=== PATIENT | female | born 1945 | race Caucasian/White ===

== ENCOUNTER 2019-03-21 10:10 | Inpatient (IN) | payer OTHER ==
[~2019-03-21] VITALS: Ht 160 cm; Wt 39.6 kg
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
[2019-03-21 10:11] VITALS: BP 172/68
[2019-03-21] MEDS ORDERED: PERCOCET 5-3251 EACH PO (10:33)
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
[2019-03-21 16:31] LABS: ABSOLUTE NEUTROPHILS 16.5 thou/uL (1.4-8.2); BASOPHILS 0.6 % (0.0-2.0); EOSINOPHILS 0.1 % (0.0-3.0); HEMATOCRIT 47.5 % (37.0-47.0); HEMOGLOBIN 15.7 gm/dL (12.0-15.0); MCH 31.7 pg (26.0-34.0); MCV 95.9 fL (80.0-100.0); MONOCYTES 6.5 % (1.0-8.0); PLATELET COUNT 195 thou/uL (150-400); POLYS 82.8 % (36.0-66.0); RBC 4.96 mil/uL (4.20-5.00); RDW 13.6 % (10.5-14.5)
[2019-03-21 16:40] LABS: APTT 32.9 Seconds (24.5-32.8); CALCIUM 9.8 mg/dL (8.5-10.1); CREATININE 1.1 mg/dL (0.6-1.0); INR 1.1; POTASSIUM 4.3 mmol/L (3.5-5.1); PROTIME 11.5 Seconds (9.3-11.4)
[2019-03-21 16:50] LABS: ALBUMIN 3.6 g/dL (3.4-5.0); DIRECT BILIRUBIN 0.2 mg/dL (<0.1-0.2); TOTAL PROTEIN 7.9 g/dL (6.4-8.2); TROPONIN-I 0.31 ng/mL (<0.06)
[2019-03-21 17:02] VITALS: BP 162/70
[2019-03-21 17:35] VITALS: BP 172/64
[2019-03-21 18:05] VITALS: BP 172/83
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
[2019-03-21 20:08] VITALS: BP 151/77
[2019-03-21 23:23] VITALS: BP 100/67
[2019-03-22 04:17] LABS: ALBUMIN 3.5 g/dL (3.4-5.0); CALCIUM 9.3 mg/dL (8.5-10.1); MAGNESIUM 1.9 mg/dL (1.8-2.4); PHOSPHORUS 4.2 mg/dL (2.5-4.9); POTASSIUM 4.3 mmol/L (3.5-5.1); TROPONIN-I 0.4 ng/mL (<0.06)
[2019-03-22 04:18] LABS: HEMATOCRIT 47.4 % (37.0-47.0); HEMOGLOBIN 15.4 gm/dL (12.0-15.0); MCH 31.7 pg (26.0-34.0); MCHC 32.6 g/dL (28.0-37.0); MCV 97.4 fL (80.0-100.0); RBC 4.87 mil/uL (4.20-5.00); RDW 13.2 % (10.5-14.5); WBC 20.4 thou/uL (4.0-11.0)
[2019-03-22 04:45] VITALS: BP 148/81
--- NOTE | 2019-03-22 06:24 | NUR ---
continues to have generalized pain. caLLS FOR ASSIST OUT OF BED. CONSULTED CARDIOLOGY AND ELEVATED TROPONINS REPORTED TO THE COMPUTING TUTOR. CAREPLAN STARTED
[2019-03-22 07:00] VITALS: BP 152/56
[2019-03-22] MEDS ORDERED: OXYCODONE HCL10 MG PO (08:54)
[2019-03-22] MEDS ORDERED: LOVASTATIN 20 M20 MG PO (08:54)
[2019-03-22] MEDS ORDERED: ALPRAZOLAM 0.0.25 MG PO (08:56)
[2019-03-22] MEDS ORDERED: DICLOFENAC SOD100 G1 TOP (09:00)
[2019-03-22] MEDS ORDERED: NEURONTIN 300M300 M2 PO (09:01)
[2019-03-22] MEDS ORDERED: BUPROPION XL150 MG PO (09:02)
[2019-03-22] MEDS ORDERED: PERCOCET 10-321 EAC1 PO (10:27)
[2019-03-22] MEDS ORDERED: NEURONTIN100 MG PO (10:33)
[2019-03-22] MEDS ORDERED: FLEXERIL PO (10:36)
[2019-03-22] MEDS ORDERED: SERTRALINE HCL100 MG PO (10:41)
[2019-03-22] MEDS ORDERED: COZAAR 25 MG TA25 M2 PO (10:42)
--- NOTE | 2019-03-22 14:36 | 2DMMODE ---
[facility] Alissa [place] [address] 2 D/M-MODE ECHOCARDIOGRAM Name: LYDIA ZAMORA MOE Room #: 364-P ADM IN M.R.#: [id number] Admission: 03/21/19 Attend Phys: Johnie Garvey, Discharge: Date of : 45 Report #: [id number] THIS REPORT FOR: //name// APPROVED REPORT Study performed: 03/22/2019 11:11:02 EXAM: Comprehensive 2D, Doppler, and color-flow Echocardiogram Patient Location: In-Patient Room #: 364 Status: routine BSA: 1.33 HR: 103 bpm BP: 106/50 mmHg Rhythm: Atrial Fibrillation Other Information Study Quality: Adequate Risk Factors: Cardiac Risk Factors: Hyperlipidemia, HTN, Smoking 2D Dimensions RVDd: 29.17 mm IVSd: 13.48 (7-11mm) LVOT Diam: 14.65 (18-24mm) LVDd: 27.28 mm PWd: 13.55 (7-11mm) Left Atrium: 27.39 (27-40mm) Aortic Root: 29.80 mm LV Single Plane 4CH: 73.50 % Volumes Left Atrial Volume (Systole) Single Plane 4CH: 18.81 mL Aortic Valve AoV Peak Lex.: 3.72 m/s AO Peak Gr.: 55.34 mmHg AO Mean Gr.: 25.96 mmHg AO V2 Mean: 2.31 m/s AO V2 VTI: 67.22 cm Mitral Valve E/A Ratio: 0.6 MV Decel. Time: 359.80 ms [facility] [address] [place] [address] 2 D/M-MODE ECHOCARDIOGRAM Name: LYDIA ZAMORA Room #: 364-P ADM IN M.Kenyatta.#: [id number] Admission: 03/21/19 Attend Phys: Johnie Garvey, Discharge: Date of : 45 Report #: [id number] MV E Max Lex.: 1.00 m/s MV A Lex.: 1.55 m/s MV PHT: 104.34 ms Tricuspid Valve TR Peak Lex.: 2.82 m/s TR Peak Gr.: 31.82 mmHg Left Ventricle The left ventricle is normal size. There is normal LV segmental wall motion. Moderate concentric left ventricular hypertrophy. Left ventricular systolic function is hyperdynamic. LVEF is >70%. Mild diastolic dysfunction is present (impaired relaxation pattern). Right Ventricle The right ventricle is normal size. The right ventricular systolic function is normal. Atria The left atrium size is normal. The right atrium size is normal. Aortic Valve Aortic valve is moderately calcified. There is a marked LVOT obstruction with gradient. No aortic regurgitation is present. Clear transaortic gradients are not obtained. Mitral Valve Moderately heavy mitral annular calcification. Systolic anterior motion of the mitral valve with possible LVOT gradient. Not clearly defined on study. Moderate to severe mitral regurgitation Tricuspid Valve Trace tricuspid regurgitation. Estimated PAP is 42 mmHg. Pulmonic Valve The pulmonary valve is normal in structure. Great Vessels IVC is normal in size and collapses >50% with inspiration. Pericardium There is no pericardial effusion. [facility] [address] [place] [address] 2 D/M-MODE ECHOCARDIOGRAM Name: LYDIA ZAMORA Room #: 364-P ADM IN M.R.#: [id number] Admission: 03/21/19 Attend Phys: Johnie Garvey, Discharge: Date of : 45 Report #: [id number] <Conclusion> Limited study Left ventricular systolic function is hyperdynamic. LVEF is >70%. Moderate concentric left ventricular hypertrophy. There is normal LV segmental wall motion. Mild diastolic dysfunction is present (impaired relaxation pattern). Aortic valve is moderately calcified. A LVOT gradient is suggested although poorly defined. No aortic regurgitation is present. Clear transaortic gradients are not obtained. Moderately heavy mitral annular calcification. Systolic anterior motion of the mitral valve with possible LVOT gradient. Not clearly defined on study. Moderate to severe mitral regurgitation Pulmonary artery systolic pressure could not be reliably ascertained There is no pericardial effusion. <ELECTRONICALLY SIGNED> By: Esteban Rivers MD, [facility] 03/22/19 1436 1436 1436 Esteban Rivers MD, FACC /INF
[2019-03-22 15:05] VITALS: BP 131/59
--- NOTE | 2019-03-22 15:20 | EKG ---
[address] [employer] [place] [address] ELECTROCARDIOGRAM REPORT Name: LYDIA ZAMORA Room #: 364-P ADM IN M.R.#: [id number] Admission: 03/21/19 Attend Phys: Johnie Garvey MD Discharge: Date of : 45 Report #: [id number] THIS REPORT FOR: //name// [facility] Test Date: 2019-03-21 Test Time: 22:18:28 Pat Name: LYDIA ZAMORA Department: Room: 364 P Gender: F [employer]: Garima GARCIA : 1945 Requested By: Sloan Ann Order Number: [id number] MD: Esteban Rivers Measurements Intervals [place] Rate: 98 P: 72 TN: 129 QRS: 40 QRSD: 78 T: 64 QT: 339 QTc: 433 Interpretive Statements Sinus rhythm Right atrial enlargement Poor septal R-wave progression No previous ECG available for comparison Electronically Signed On 03-22-2019 15:19:52 FILLER SHREDDER HELPER by Esteban Rivers [email or web address] <ELECTRONICALLY SIGNED> By: Esteban Rivers MD, [facility] 03/22/19 1519 D: 12/2217 17 Esteban Rivers MD, FACC /EPI
--- NOTE | 2019-03-22 15:23 | EKG ---
[address] [address] ELECTROCARDIOGRAM REPORT Name: LYDIA ZAMORA Room #: 364-P ADM IN M.R.#: [id number] Admission: 03/21/19 Attend Phys: Johnie Garvey MD Discharge: Date of : 45 Report #: [id number] THIS REPORT FOR: //name// [facility] Test Date: 2019-03-22 Test Time: 08:14:49 Pat Name: LYDIA ZAMORA Department: Room: 364 P Gender: F Alterations Expert: GRACIA : 1945 Requested By: Sloan Ann Order Number: [id number] MD: Esteban Rivers Measurements Intervals [place] Rate: 119 P: 51 [place]: 132 QRS: 23 QRSD: 74 T: 75 QT: 329 QTc: 463 Interpretive Statements Sinus tachycardia Paired ventricular premature complexes Anterior infarct, old No previous ECG available for comparison Electronically Signed On 03-22-2019 15:22:42 TERMINAL MAKE UP OPERATOR by Esteban Rivers [email or web address] <ELECTRONICALLY SIGNED> By: Esteban Rivers MD, [facility] 03/22/19 1522 0814 3 Esteban Rivers MD, FACC /EPI
--- NOTE | 2019-03-22 17:39 | NUR ---
PT HAS REPORTED HEADACHE TODAY AND HAS SCHEDULED TYLENOL...SHE ALSO HAS LIDODERM PATCH TO MID CHEST WITH GOOD RELIEF...
[2019-03-22 20:11] VITALS: BP 138/87
[2019-03-22 23:35] VITALS: BP 128/74
--- NOTE | 2019-03-23 02:56 | NUR ---
Nursing continued with scheduled Tylenol with partial pain relief. Patient stated she was very tired. Nursing will continue to monitor.
--- NOTE | 2019-03-23 04:22 | NUR ---
Around 0330 patient walked about 200 feet, from 364 past the nurses' station and back to her room. She did feel weak after but denied being SOA. Nursing will continue to monitor.
[2019-03-23 05:34] LABS: HEMATOCRIT 43.5 % (37.0-47.0); HEMOGLOBIN 14.3 gm/dL (12.0-15.0); MCH 31.9 pg (26.0-34.0); MCHC 32.8 g/dL (28.0-37.0); MCV 97.2 fL (80.0-100.0); RBC 4.48 mil/uL (4.20-5.00); RDW 13.5 % (10.5-14.5); WBC 17.4 thou/uL (4.0-11.0)
[2019-03-23 05:48] LABS: ALBUMIN 3.1 g/dL (3.4-5.0); CREATININE 1.1 mg/dL (0.6-1.0); PHOSPHORUS 3.7 mg/dL (2.5-4.9); POTASSIUM 3.9 mmol/L (3.5-5.1)
[2019-03-23 06:48] VITALS: BP 155/83
[2019-03-23 15:50] VITALS: BP 120/59
--- NOTE | 2019-03-23 19:27 | NUR ---
PT REPORTS GENERALIZED PAIN..STERNAL PAIN AND HEADACHE...MEDICATED WITH PERCOCET, TYLENOL AND LIDODERM PATCHS WITH FAIRLY GOOD CONTROL...
[2019-03-23 20:30] VITALS: BP 143/44
--- NOTE | 2019-03-23 20:33 | NUR ---
PT IS DEFINANTLY OKAY WITH GETTING A BRONSCOPY. SHE ASKED SOME GOOD QUESTIONS. AND UNDERSTADS THAT SHE NEEDS ASNWERS AND TREATMENT. SHE SAID THE QUICKER THE BETTER TO GET THE PROCEDRURE DONE.
[2019-03-24 04:45] VITALS: BP 129/60
[2019-03-24 08:11] VITALS: BP 139/78
--- NOTE | 2019-03-24 11:48 | 2DMMODE ---
[facility] Alissa [employer] [address] 2 D/M-MODE ECHOCARDIOGRAM Name: LYDIA ZAMORA MOE Room #: 364-P ADM IN M.R.#: [id number] Admission: 03/21/19 Attend Phys: Johnie Garvey, Discharge: Date of : 45 Report #: [id number] THIS REPORT FOR: //name// APPROVED REPORT Study performed: 03/24/2019 10:25:02 EXAM: Limited 2D, Doppler, and color-flow Echocardiogram Patient Location: Bedside Room #: 364 Status: routine BSA: 1.34 HR: 82 bpm BP: 139/78 mmHg Rhythm: NSR Indications Follow echo for LVOT obstruction, and MR. 2D Dimensions RVDd: 29.03 mm IVSd: 13.47 (7-11mm) LVOT Diam: 19.71 (18-24mm) LVDd: 32.44 mm PWd: 10.12 (7-11mm) LVDs: 21.72 (25-40mm) Volumes Left Atrial Volume (Systole) Single Plane 4CH: 26.78 mL Single Plane 2CH: 35.99 mL LA ESV Index: 23.00 mL/m2 Aortic Valve AoV Peak Lex.: 2.37 m/s AO Peak Gr.: 22.48 mmHg AO Mean Gr.: 12.94 mmHg AO V2 Mean: 1.68 m/s AO V2 VTI: 41.90 cm Mitral Valve E/A Ratio: 0.5 MV Decel. Time: 294.01 ms MV E Max Lex.: 0.80 m/s MV A Lex.: 1.47 m/s MV PHT: 85.26 ms Pulmonary Valve [facility] [address] [place] [address] 2 D/M-MODE ECHOCARDIOGRAM Name: LYDIA ZAMORA MOE Room #: 364-[facility] IN .R.#: [id number] Admission: 03/21/19 Attend Phys: Johnie Garvey, Discharge: Date of : 45 Report #: [id number] PV Peak Lex.: 0.80 m/s PV Peak Gr.: 2.56 mmHg Pulmonary Vein P Vein S: 0.95 m/s P Vein A: 0.37 m/s P Vein D: 0.78 m/s P Vein A Dur.: 133.8 msec P Vein S/D Ratio: 1.22 Tricuspid Valve TR Peak Lex.: 3.10 m/s RAP Estimate: 5.00 mmHg TR Peak Gr.: 39.00 mmHg PA Pressure: 44.00 mmHg Left Ventricle The left ventricle is normal size. There is normal LV segmental wall motion. Modetate concentric left ventricular hypertrophy. Systolic anterior motion of the mitral valve with severe LVOT obstruction. Peak gradient of 84mmHg and a mean of 45mmHg. Left ventricular systolic function is hyperdynamic. LVEF is >70%. Mild diastolic dysfunction is present (impaired relaxation pattern). Right Ventricle The right ventricle is normal size. The right ventricular systolic function is normal. Atria The left atrium size is normal. The right atrium size is normal. Aortic Valve The aortic valve leaflets are moderately calcified, not stenotic. No aortic regurgitation is present. Mitral Valve Heavily calcified annulus. Systolic anterior motion of the mitral valve is present. Moderate to severe mitral regurgitation No evidence of mitral valve stenosis. Tricuspid Valve The tricuspid valve is normal in structure. Mild tricuspid regurgitation. Estimated PAP is 45mmHg. Pulmonic Valve The pulmonary valve is normal in structure. Mild pulmonic regurgitation. Great Vessels [facility] [address] [place] [address] 2 D/M-MODE ECHOCARDIOGRAM Name: LYDIA ZAMORA MOE Room #: 364-P ADM IN M.R.#: [id number] Admission: 03/21/19 Attend Phys: Johnie Garvey, Discharge: Date of : 45 Report #: [id number] IVC is normal in size and collapses >50% with inspiration. Pericardium There is no pericardial effusion. <Conclusion> Left ventricular systolic function is hyperdynamic. Modetate concentric left ventricular hypertrophy. Systolic anterior motion of the mitral valve with severe LVOT obstruction (Peak gradient of 84mmHg; mean 45mmHg). There is normal LV segmental wall motion. LVEF is 70%. The aortic valve leaflets are moderately calcified, not stenotic. No aortic regurgitation. Heavily calcified annulus. Systolic anterior motion of the mitral valve is present (See above). Moderate to severe mitral regurgitation Mild tricuspid regurgitation. Estimated pulmonary artery pressure of 45mmHg. There is no pericardial effusion. <ELECTRONICALLY SIGNED> By: Esteban Rivers MD, FACC 03/24/19 1147 1147 1147 Esteban Rivers MD, FACC /INF
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
[2019-03-24 14:57] VITALS: BP 139/78
[2019-03-24 17:07] VITALS: BP 137/76
--- NOTE | 2019-03-24 19:14 | NUR ---
PT ALERT AND ORIENTED X4. SLIGHTLY FORGETFUL THIS AFTERNOON FOLLOWING PAIN MEDICATION. PT TO [facility]UC MED FOR STRESS TEST THIS AFTERNOON. ORDER TO TRANSFER TO MED SURG. REPORT GIVEN TO JER DOWNS 4W.
[2019-03-24 19:38] VITALS: BP 141/83
--- NOTE | 2019-03-25 04:52 | NUR ---
ASSUMED CARE OF PT AT 1900HRS. PT AOX4 AND LETS NEEDS BE KNOWN. FALL PRECAUTION IN PLACE. PT HAS A WORSNING COUGH. PT COMPLAINED OF SOME NON CARDIAC CHEST PAIN AND WAS TREATED WITH PRN PAIN MEDS. PT WAS ABLE TO GET COMFORTABLE AND SLEEP PART OF THE SHIFT. VSS AND NO S/S OF ACUTE DISTRESS. WILL CONTINUE TO MONITOR.
[2019-03-25 05:02] VITALS: BP 143/75
[2019-03-25 07:30] VITALS: BP 148/82
[2019-03-25 07:52] VITALS: BP 135/65
--- NOTE | 2019-03-25 08:58 | NUR ---
DISCHARGE PLANNING. HOME HEALTH RECOMMENDED AT DISCHARGE. [facility] CALL RECEIVED FROM TERRY JACOBO INTAKE. ACCEPTING OF PATIENT AT DISCHARGE. FOLLOWING.
--- NOTE | 2019-03-25 15:39 | NUR ---
ST SAW PT MIGHT LOOK AT CONSULTING PSYCH. PULM INDICATED THAT THEY ANTICIPATE DOING A BRONCH SUNDAY OR SUNDAY. CM TO FOLLOW INDICATED WITH DC PLANNING.
[2019-03-25 19:15] VITALS: BP 127/59
--- NOTE | 2019-03-25 19:37 | NUR ---
Assumed pt care at 7am.Assessment completed.vss.Pt in and out of bed to br with assist x1.Dr Spence here,order noted.Pt signed consent for bronch with bx scheduled for .Pt in bed for all meals.Fair appetite.Medicated pt with tylenol and tramadol for bodyache. Partial relief noted.Will continue to monitor.
--- NOTE | 2019-03-26 05:21 | NUR ---
ASSUMED CARE AROUND 1914. AXOX3. PERSISTENT PAIN TO L CHEST WHERE BRUISING IS. MEDICATED PER MD ORDER. NO S/S ACUTE DISTRESS NOTED OR REPORTED AT THIS TIME. WILL CONT TO MONITOR FOR ANY CHANGES IN CONDITION.
[2019-03-26 05:26] VITALS: BP 166/71
[2019-03-26 06:21] LABS: HEMATOCRIT 41.9 % (37.0-47.0); HEMOGLOBIN 13.6 gm/dL (12.0-15.0); MCH 31.8 pg (26.0-34.0); MCHC 32.4 g/dL (28.0-37.0); RBC 4.28 mil/uL (4.20-5.00); RDW 13.6 % (10.5-14.5); WBC 13.7 thou/uL (4.0-11.0)
[2019-03-26 06:27] LABS: CALCIUM 9.2 mg/dL (8.5-10.1); CREATININE 0.9 mg/dL (0.6-1.0); POTASSIUM 4.8 mmol/L (3.5-5.1)
[2019-03-26 06:31] VITALS: BP 152/67
[2019-03-26 08:09] VITALS: BP 149/77
[2019-03-26 15:33] VITALS: BP 136/60
--- NOTE | 2019-03-26 15:58 | NUR ---
ASSUMED PATIENT CARE AT 0715. PATIENT HAS RESTED IN BED MOST OF THE DAY. UP TO BATHROOM WITH MINIMAL ASSISTANCE. MAIN COMPLAINT IS LEFT CHEST AND HEAD PAIN WHICH WAS RELIEVED WITH TYLENOL AND OXYCODONE. EATING SMALL AMOUNTS. LIDOCAINE PATCH HELPFUL. HAVE MONITORED CLOSELY. CALLS APPROPRIATELY FOR ASSISTANCE TO BATHROOM. FALL PRECAUTIONS IN PLACE.
[2019-03-26 19:28] VITALS: BP 156/73
--- NOTE | 2019-03-27 07:32 | NUR ---
ASSUMED CARE AROUND 191. AXOX4. KEPT NPO FOR BRONCOSCOPY IN AM. ONETIME IV FENTANYL D/T STRICT NPO AFTER MN. NO S/S ACUTE DISTRESS NOTED OR REPORTED AT THIS TIME. CARE TRANSFERRED TO INCOMING RN AT THIS TIME.
[2019-03-27 07:35] VITALS: BP 133/46
[2019-03-27 11:50] VITALS: BP 163/64
[2019-03-27 12:15] VITALS: BP 138/59
--- NOTE | 2019-03-27 14:02 | NUR ---
[facility]. CARE TEAM INDICATED THAT PT WOULD LIKELY BE MEDICALLY STABLE FOR DC HOME TOMORROW. CM SPOKE WITH PT, SON, AND FRIEND PAUL. ALL ARE AWARE AND AGREEABLE. TERRY CHENG HAD ACCEPTED PT FOR SERVICES CLINICAL UPDATES WERE SENT. CM TO FOLLOW INDICATED WITH DC PLANNING.
[2019-03-27 14:35] VITALS: BP 151/65
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
[2019-03-27 19:10] VITALS: BP 130/80
--- NOTE | 2019-03-28 03:18 | NUR ---
PT IS A/O X4.PT IS UP WITH STANDBY ASSIST TO THE RESTHROOM.PT C/O OF PAIN AND PAIN WAS MANAGED WITH SCHEDULE TYLENOL AND OXYCODONE.PT IS OB FLUID RESTRICTION OF 1500CC /24HRS.WILL CONTINUE TO MONITOR POC
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
[2019-03-28 07:59] VITALS: BP 148/92
--- NOTE | 2019-03-28 12:46 | NUR ---
CARE TEAM INDICATED THAT PT IS NOW INDICATING THAT SHE IS INTERESTED IN POST ACUTE CARE STAY. SHE STATES SHE DOESN'T FEEL WEEL ENOUGH TO RETURN HOME AT THIS TIME. CM PROVIDED PT WITH A SNF LIST FOR REVIEW. PT ASKED THAT REFERRALS BE SENT TO [facility] FOR REVIEW FOR POSSIBLE ADMISSION. CM TO NOTIFY PT'S FRIEND PAUL AND HER SON. CM TO FOLLOW INDICATED WITH DC PLANNING.
[2019-03-28 16:43] VITALS: BP 135/73
--- NOTE | 2019-03-28 17:26 | NUR ---
PT A&OX4, FEBRILE, PAIN IN HEAD AND RIBS. TYLENOL GIVEN FOR FEVER. PAIN MEDICATION GIVEN. PATIENT WANTED TO SLEEP MOST OF THE DAY AND REFUSED TO SIT IN RECLINER. PATIENT HAS SMALL APPETITE. LUNGS CLEAR, NON PRODUCTIVE CONGESTED COUGH, NO SIGNS OF DISTRESS. WILL CONTINUE TO MONITOR.
[2019-03-28 19:20] VITALS: BP 149/72
--- NOTE | 2019-03-29 02:11 | NUR ---
patient aox2 confused and forgetful. pain controlled this shift. patient needs minimum assistance with adl, bed mobility, transfer and toileting. call light and personal items within reach. patient in bed asleep at this time breathing regular and unlaboured.
[2019-03-29 04:33] LABS: HEMATOCRIT 43.2 % (37.0-47.0); MCH 31.5 pg (26.0-34.0); MCHC 32.5 g/dL (28.0-37.0); MCV 96.9 fL (80.0-100.0); RBC 4.45 mil/uL (4.20-5.00); RDW 13.4 % (10.5-14.5); WBC 15.4 thou/uL (4.0-11.0)
[2019-03-29 06:35] LABS: CALCIUM 9.5 mg/dL (8.5-10.1); POTASSIUM 4.1 mmol/L (3.5-5.1)
[2019-03-29 07:16] VITALS: BP 150/82
[2019-03-29 15:10] VITALS: BP 109/61
--- NOTE | 2019-03-29 17:38 | NUR ---
Assumed pt care at 7am.Pt in and out of bed with sba to bathroom.Voided and has moderate brown formed stool today.Assessment completed.vss.Pt tolerated meds and diet.Dr Sagastume here,no new order noted.Tramadol and tylenol given for back pain with relief.No further c/o at present.Will continue to monitor.
[2019-03-29 19:19] VITALS: BP 121/54
--- NOTE | 2019-03-30 06:42 | NUR ---
ASSUMED PT CARE AT 1915. PT IS A&OX4. NO IV ACCESS. PT HAS MOMENTS OF CONFUSION IN THE MIDDLE OF THE EVENING. PT TOOK SCHEDULED MEDICATION. PT IS A SBA TO THE RR. PT HAS URGENCY BUT DOES NOT USE THE RR. PT CALLS OUT APPROPRIATELY. PT STATES THAT SHE THINKS SHE MAY BE DEPPRESSED. WILL CONTINUE TO MONITOR.
[2019-03-30 07:08] VITALS: BP 134/68
--- NOTE | 2019-03-30 13:43 | NUR ---
PT A&OX4, VSS, GENERAL PAIN. PATIENT TOLERATING DIET, REAMAINS ON 1500 FLUID RESTRICTION. NO SIGNS OF DISTRESS. AWAITING DISHCARGE TO REBAB. WILL CONTINUE TO MONITOR.
[2019-03-30 15:31] VITALS: BP 117/47
[2019-03-31 00:11] VITALS: BP 155/65
--- NOTE | 2019-03-31 04:52 | NUR ---
Assumed pt care @191. pt a&o but forgetful. ambulates with standby assist to the bathroom. pt is a fall risk but will get out of bed sometimes without ringing. bed alarm in place. pain was controlled with current regimen. pt stated not to be woken up at midnight for tylenol so it was held. @ about 0430, pt called for pain in her abd and a headache and was medicated. scheduled tylenol for 0600 was given at this time. pt has been sleeping since then. no s/s of distress. will cont to monitor
[2019-03-31 07:50] VITALS: BP 135/83
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
--- NOTE | 2019-03-31 18:11 | NUR ---
PT A&OX3, FORGETFUL, VSS, PAIN IN CHEST AND HEADACHE. MEDICATION GIVEN. PT STATES SHE IS FEELING DEPRESSED. NO SIGNS OF DISTRESS. AWAITING INSURANCE AUTH FOR PATIENT TO TRANSFER TO FACILITY. WILL CONTINUE TO MONITOR.
[2019-03-31 19:45] VITALS: BP 147/84
--- NOTE | 2019-04-01 03:57 | NUR ---
ASSUMED OF PT AT 1900HRS. PT IS AOX4 AND LETS NEEDS BE KNOWN. FALL PRECAUTION IN PLACE DUE TO WEAKNESS. PT REPORTED PAIN AND WAS TREATED WITH PRN PAIN MEDS. PT IS NOT REQUESTING PAIN MEDS MUCH SHE HAD BEEN. PT WAS ABLE TO GET COMFORTABLE AND SLEEP PART OF THE SHIFT. VSS AND NO S/S OF ACUTE DISTRESS. WILL CONTINUE TO MONITOR.
[2019-04-01 07:17] VITALS: BP 134/75
--- NOTE | 2019-04-01 12:28 | NUR ---
Received awake on bed. Due medications given as prescribed, able to swallow meds w/o difficulty. A+O. On room air. On fluid restriction of 1500/24hrs- pt informed and reminded from time to time; intake measured and recorded. On regular diet- encouraged and assisted in eating and drinking. Assisted in ADLs. Able to walk to the bathroom with gait belt and minimal to standby assist. No IV noted- as per pbx wire chief nurse aware. Vital signs stable. Falls bundle in place.
[2019-04-01 14:02] VITALS: BP 139/78
--- NOTE | 2019-04-01 15:43 | NUR ---
CARE TEAM AND PT HAVE BOTH EXPRESSED DESIRE FOR PT TO DC HOME WITH HH THIS DAY. CM NOTIFIED PT'S SON, HE IS AWARE AND AGREEABLE. ORDERS FAXED TO [facility]. CM ATTAMPTED TO NOTIFY PT'S FRIEND PAUL BUT THERE WASN'T AN ANSWER. PT IS TO DISCHARGE HOME THIS DAY WITH [facility]. NO OTHER CM INTERVENTION INDICATED. CASE CLOSED.
[2019-04-01 15:46] VITALS: BP 164/70
--- NOTE | 2019-04-03 16:06 | PATH ---
[facility] [address] [place] [address] PATHOLOGY RPT PROCEDURE Name: LYDIA ZAMORA Room #: 458-P [facility] IN M.R.#: [id number] Admission: 03/21/19 Date of : 45 Discharge: 04/01/19 Report #: [id number] Path Case #: [id number] Note [facility] Accession Number: [id number] TESTS RESULT FLAG UNITS REF RANGE LAB Clinician Provided Cytology Information No. of containers..01 Other (Miscellaneous) Source: BRUSHTIP DIAGNOSIS: 02 [place] NEGATIVE FOR MALIGNANT CELLS. REACTIVE BRONCHIAL CELLS ARE PRESENT. PULMONARY MACROPHAGES (DUST CELLS) ARE PRESENT. Pathologist ICD10: 02 C34.91 Signed out by: Cynthia Phelan MD, Pathologist NPI- [id number] Performed by: Lenny Joiner, Tractor Trailer Technician ([facility]) FLAG LEGEND: L-Low Normal,H-High Normal,LL-Alert Low,HH-Alert High <-Panic Low,>-Panic High,A-Abnormal,AA-Critical Abnormal Performed at: [address] [place] [address] Rojelio Hernandez MD, [address] [address] Cynthia Phelan MD, Specimen Comment: A courtesy copy of this report has been sent to [phone], [phone] Specimen Comment: [phone], Specimen Comment: Report sent to ,DR IRVIN / DR GUTIERREZ Performed at: [address], [place], [place] [id number] MD Rojelio Hernandez MD Phone: [phone]
--- NOTE | 2019-04-03 16:06 | PATH ---
[facility] [place] [address] PATHOLOGY RPT PROCEDURE Name: LYDIA ZAMORA Room #: 458-P [facility] IN M.R.#: [id number] Admission: 03/21/19 Date of : 45 Discharge: 04/01/19 Report #: [id number] Path Case #: [id number] Note [facility] Accession Number: [id number] TESTS RESULT FLAG UNITS REF RANGE LAB Clinician Provided Cytology Information No. of containers..01 Other (Miscellaneous) Source: [A] 01 TBNA DIAGNOSIS: [A] 02 TRANSBRONCHIAL NEEDLE ASPIRATION POSITIVE FOR MALIGNANT CELLS. ADENOCARCINOMA IS PRESENT. REACTIVE BRONCHIAL CELLS ARE PRESENT. PULMONARY MACROPHAGES (DUST CELLS) ARE PRESENT. THIS INTERPRETATION INCLUDES EVALUATION OF A CELL BLOCK. Comment: Examination of the cellblock shows scattered malignant epithelial cells with nucleoli amidst necrosis. Much of the sample has necrotic fragments as well as benign bronchial epithelial cells. Multiple properly controlled immunohistochemical stains are performed on the cellblock. The cells show strong nuclear reactivity with TTF-1, weak non-specific reactivity with p63 and no reactivity with synaptophysin or chromogranin. Findings support an adenocarcinoma. The case was coreviewed with Dr. Jose Roberto Hernandez who concurs with my interpretation. Findings are conveyed to Dr. Quezada at 10:55 AM on 04/03/2019. Pathologist ICD10: 02 C34.91 Signed out by: Cynthia Phelan MD, Pathologist NPI- [id number] Performed by: Lenny Joiner, Pit Worker Power Shovel ([facility]) Gross description: 01 20ML, CLOUDY TRUJILLO, /LCS 04/01/2019 1914 Local FLAG LEGEND: L-Low Normal,H-High Normal,LL-Alert Low,HH-Alert High <-Panic Low,>-Panic High,A-Abnormal,AA-Critical Abnormal Performed at: [place] [facility] [address] [place] [address] Rojelio Hernandez MD, [address] [address] PATHOLOGY RPT PROCEDURE Name: LYDIA ZAMORA Room #: 458-P DIS IN M.R.#: [id number] Admission: 03/21/19 Date of : 45 Discharge: 04/01/19 Report #: [id number] Path Case #: [id number] 02 [facility] [address] [facility], [place] [address] Cynthia Phelan MD, Performed at: 01 [facility] [address] [facility] [address], [place], [place] [id number] MD Rojelio Hernandez MD Phone: [phone]
--- NOTE | 2019-04-03 16:06 | PATH ---
[facility] [address] [place] [address] PATHOLOGY RPT PROCEDURE Name: LYDIA ZAMORA Room #: 458-P [facility] IN M.R.#: [id number] Admission: 03/21/19 Date of : 45 Discharge: 04/01/19 Report #: [id number] Path Case #: [id number] Note [facility] Accession Number: [id number] TESTS RESULT FLAG UNITS REF RANGE LAB Clinician Provided Cytology Information No. of containers..01 Other (Miscellaneous) Source: BAL RML DIAGNOSIS: BAL RML NEGATIVE FOR MALIGNANT CELLS. REACTIVE BRONCHIAL CELLS ARE PRESENT. PULMONARY MACROPHAGES (DUST CELLS) ARE PRESENT. Pathologist ICD10: 02 C34.91 Signed out by: 02 Cynthia Phelan MD, Pathologist NPI- [id number] Performed by: Lenny Joiner, Plumbing Assembler Installer ([facility]) Gross description: 01 15ML, CLOUDY YELLOW, /LCS 04/01/2019 191 Local FLAG LEGEND: L-Low Normal,H-High Normal,LL-Alert Low,HH-Alert High <-Panic Low,>-Panic High,A-Abnormal,AA-Critical Abnormal Performed at: [address] [place] [address] Rojelio Hernandez MD, [address] [address] Cynthia Phelan MD, Specimen Comment: A courtesy copy of this report has been sent to [phone] Specimen Comment: [phone], Specimen Comment: Report sent to BRANDEE Powers / BRENDA Performed at: [address], [place], [place] [address] MD Rojelio Hernandez MD Phone: [phone]
--- NOTE | 2019-04-03 16:06 | PATH ---
[facility] [address] [place] [address] PATHOLOGY RPT PROCEDURE Name: LYDIA ZAMORA Room #: 458-P [facility] IN M.R.#: [id number] Admission: 03/21/19 Date of : 45 Discharge: 04/01/19 Report #: [id number] Path Case #: [id number] Note [facility] Accession Number: [id number] TESTS RESULT FLAG UNITS REF RANGE LAB Clinician Provided Cytology Information No. of containers..01 Other (Miscellaneous) Source: BRONCH BRUSHING RML DIAGNOSIS: BRONCH BRUSHING RML NEGATIVE FOR MALIGNANT CELLS. REACTIVE BRONCHIAL CELLS ARE PRESENT. PULMONARY MACROPHAGES (DUST CELLS) ARE PRESENT. Pathologist ICD10: 02 C34.91 Signed out by: 02 Cynthia Phelan MD, Pathologist NPI- [id number] Performed by: Lenny Joiner, Horseback Excavator ([facility]) FLAG LEGEND: L-Low Normal,H-High Normal,LL-Alert Low,HH-Alert High <-Panic Low,>-Panic High,A-Abnormal,AA-Critical Abnormal Performed at: [address] [place] [address] Rojelio Hernandez MD, [address] [address] Cynthia Phelan MD, Performed at: [address], [place], [place] [id number] MD Rojelio Hernandez MD Phone: [phone]
--- NOTE | 2019-04-04 13:24 | NUR ---
cm receive phone call from torsten with [facility] who stated pt was dc home with hh and has rn acute care helper at home and she refusing hh and stated " that [facility] is where she wanted to go and thought re sent them and referral while she was here and now with [facility] since refused hh have no therapy notes for auth and she might just have to come back to the er" osbaldo [phone]. cm education that [facility] and [facility] weren't able to accept and [facility] was willing to seek auth if pt did not go home. education with torsten that if not having medical needs pt not just admitted to the hospital for placement to snf. " ok thank you"/ osbaldo
== END 2019-04-01 18:53 | disposition home health service (06) | DRG 565 ==
LOC: ER 10:10 → EROBS 15:19 → 3W 15:19 → 4W 03-24 18:48 → ENTRNSPT 04-01 18:24 → 4W 04-01 18:53
PROVIDERS: Emergency Medicine; Internal Medicine; ADMIT Surgery
PROC: 0BD28ZX Extraction of Carina, Via Natural or Artificial Opening Endoscopic, Diagnostic (ICD-10-PCS; principal; 2019-03-27)
PROC: 0BD38ZX Extraction of Right Main Bronchus, Via Natural or Artificial Opening Endoscopic, Diagnostic (ICD-10-PCS; principal; 2019-03-27)
PROC: 0B9D8ZX Drainage of Right Middle Lung Lobe, Via Natural or Artificial Opening Endoscopic, Diagnostic (ICD-10-PCS; principal; 2019-03-27)
DX: S22.20XA Unspecified fracture of sternum, initial encounter for closed fracture (principal); S22.41XA Multiple fractures of ribs, right side, initial encounter for closed fracture; S32.009A Unspecified fracture of unspecified lumbar vertebra, initial encounter for closed fracture; S26.91XA Contusion of heart, unspecified with or without hemopericardium, initial encounter; E87.1 Hypo-osmolality and hyponatremia; R91.8 Other nonspecific abnormal finding of lung field; J43.9 Emphysema, unspecified; G89.29 Other chronic pain; G35 Multiple sclerosis; I10 Essential (primary) hypertension; F17.210 Nicotine dependence, cigarettes, uncomplicated; F12.90 Cannabis use, unspecified, uncomplicated; R79.89 Other specified abnormal findings of blood chemistry; D27.0 Benign neoplasm of right ovary; E78.5 Hyperlipidemia, unspecified; R59.1 Generalized enlarged lymph nodes; E27.9 Disorder of adrenal gland, unspecified; K80.20 Calculus of gallbladder without cholecystitis without obstruction; N20.0 Calculus of kidney; D72.829 Elevated white blood cell count, unspecified; F32.9 Major depressive disorder, single episode, unspecified; F41.9 Anxiety disorder, unspecified; V89.2XXA Person injured in unspecified motor-vehicle accident, traffic, initial encounter; Z87.01 Personal history of pneumonia (recurrent); Z90.710 Acquired absence of both cervix and uterus; Z79.891 Long term (current) use of opiate analgesic; Z80.0 Family history of malignant neoplasm of digestive organs; Y93.89 Activity, other specified; Y92.89 Other specified places as the place of occurrence of the external cause; Y99.8 Other external cause status; Z79.899 Other long term (current) drug therapy; R59.0 Localized enlarged lymph nodes
CPT/HCPCS: 10047; 10879; 50010; 62110; 62900; 70005

== ENCOUNTER 2019-04-04 16:57 | Inpatient (IN) | payer OTHER ==
[~2019-04-04] VITALS: Ht 152.4 cm; Wt 39.0 kg
[~2019-04-04 16:57] MED LIST: ALPRAZOLAM 0.0.25 MG PO; BUPROPION XL150 MG PO; COZAAR 25 MG TA25 M2 PO; DICLOFENAC SOD100 G1 TOP; FLEXERIL PO; LOVASTATIN 20 M20 MG PO; NEURONTIN 300M300 M2 PO; NEURONTIN100 MG PO; OXYCODONE HCL10 MG PO; PERCOCET 10-321 EAC1 PO; PERCOCET 5-3251 EACH PO; SERTRALINE HCL100 MG PO
[2019-04-04 16:58] VITALS: BP 126/54
[2019-04-04 18:40] LABS: HEMATOCRIT 41.7 % (37.0-47.0); HEMOGLOBIN 13.7 gm/dL (12.0-15.0); MCH 31.5 pg (26.0-34.0); MCHC 32.8 g/dL (28.0-37.0); PLATELET COUNT 289 thou/uL (150-400); RBC 4.34 mil/uL (4.20-5.00); RDW 13.6 % (10.5-14.5); WBC 22.2 thou/uL (4.0-11.0)
[2019-04-04 18:44] LABS: CALCIUM 9.9 mg/dL (8.5-10.1); CREATININE 1.1 mg/dL (0.6-1.0); POTASSIUM 3.9 mmol/L (3.5-5.1)
[2019-04-04 18:50] LABS: ALBUMIN 3.3 g/dL (3.4-5.0); TOTAL BILIRUBIN 0.8 mg/dL (<0.1-1.0); TOTAL PROTEIN 7.9 g/dL (6.4-8.2)
[2019-04-04 19:02] LABS: ABSOLUTE NEUTROPHILS 19.3 thou/uL (1.4-8.2); PLATELET ESTIMATE NORMAL
[2019-04-04 21:22] VITALS: BP 123/56
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
[2019-04-05 05:03] LABS: HEMATOCRIT 38.8 % (37.0-47.0); HEMOGLOBIN 12.8 gm/dL (12.0-15.0); MCH 31.6 pg (26.0-34.0); MCHC 32.9 g/dL (28.0-37.0); MCV 96.2 fL (80.0-100.0); RBC 4.03 mil/uL (4.20-5.00); WBC 19.4 thou/uL (4.0-11.0)
[2019-04-05 05:07] LABS: CALCIUM 9.4 mg/dL (8.5-10.1); POTASSIUM 3.7 mmol/L (3.5-5.1)
[2019-04-05 07:19] VITALS: BP 142/58
[2019-04-05 16:04] VITALS: BP 114/50
--- NOTE | 2019-04-05 17:46 | NUR ---
Assumed patient care at 0715. Patient's vital signs have been stable. Patient is up with assist times one with transfer's and to the toilet. Patient has been complaining of a "headache" , as well as generalized body pain. She has received Hydromorphone and Oxycodone with partial pain relief. Patient was given Lorazepam 0.25mg po at 1227 for anxiety R/T her new diagnosis of Lung Cancer. Patient has been crying off and on throughout the day about this. This nurse has visited with her several times about this diagnosis and what to expect. Patient has some noted intermittent confusion. She asked this nurse to call her son, Alexandru, to tell him the news. Son informed this nurse that he had been trying to call her all morning in her room to no avail (patient has not been feeling like talking on the phone today). Patient has an IV in right hand with sodium Chloride 0.95% running at 100mLs per hour. Will report to on-coming RN.
[2019-04-05 19:24] VITALS: BP 122/55
[2019-04-05 20:48] LABS: URINE BILIRUBIN 1+ (Negative); URINE BLOOD 3+ (Negative); URINE CLARITY CLEAR; URINE COLOR YELLOW; URINE GLUCOSE-RANDOM* NEGATIVE (Negative); URINE KETONES 1+ (Negative); URINE LEUKOCYTES-REFLEX NEGATIVE (Negative); URINE NITRITE-REFLEX NEGATIVE (Negative); URINE PROTEIN (DIPSTICK) TRACE (Negative); URINE SPECIFIC GRAVITY >= 1.030 (1.005-1.035); URINE UROBILINOGEN 0.2 E.U./dl (0.2-1.0)
[2019-04-05 21:22] LABS: ICTOTEST (BILI CONFIRMATORY) Positive (Negative)
[2019-04-05 21:25] LABS: BACTERIA-REFLEX 1-9 Few /HPF (None Seen); CRYSTALS None Seen /LPF (None Seen); HYALINE CASTS 0-3 Few /LPF (None Seen); MUCUS 0-3 Light strn/LPF (None Seen); SQUAMOUS 0-3 Few /LPF (0-3); TRANSITIONAL EPITHEL CELL 0-3 Few /LPF (None Seen); URINE RBC >20 Many /HPF (0-2); URINE WBC-REFLEX 6-15 Few /HPF (0-5)
--- NOTE | 2019-04-06 04:13 | NUR ---
ASSUMED CARE AROUND 191. AXOX3 WITH INTERMITTENT CONFUSION. UA RESULT REPORTED TO DINORAHVINEYARDIST GROUP CARE WORKER AND IV ATB STARTED. PT REQUESTED LIDOCAINE FOR PERSISTENT NON-CARDIAC CHEST PAIN AND GOT AN ORDER FROM VINEYARDIST GROUP CARE WORKER. NO S/S ACUTE DISTRESS NOTED OR REPORTED AT THIS TIME. WILL CONT TO MONITOR FOR ANY CHANGES IN CONDITION.
[2019-04-06 08:00] VITALS: BP 135/71
--- NOTE | 2019-04-06 10:49 | NUR ---
Received awake on bed. Due medications given as prescribed, able to swallow tablets w/o difficulty. With on and off confusion noted. On room air. Vital signs stable. On regular diet- refusing meals, encouraged to eat and drink, dental chair assembler consult placed. With NS at 80cc/hr, infusing well at R hand. Complained of pain, with lidocaine patch on, PRN pain medication given as prescribed. Pt seen by Dr Quezada- verified Code status, to keep pt on current code status since treatments has not yet started, may verify with Dr Ivey as well, a/w rounds. Assisted in ADLs. Able to walk to the toilet using walker and gait belt with standby to minimum assist. To consult re: DPOA.
[2019-04-06 15:00] VITALS: BP 139/58
[2019-04-06 19:32] VITALS: BP 118/49
[2019-04-07 05:38] LABS: ABSOLUTE NEUTROPHILS 11.2 thou/uL (1.4-8.2); BASOPHILS 0.6 % (0.0-2.0); EOSINOPHILS 0.8 % (0.0-3.0); HEMATOCRIT 34.2 % (37.0-47.0); HEMOGLOBIN 11.3 gm/dL (12.0-15.0); LYMPHOCYTES 7.3 % (24.0-44.0); MCHC 33.2 g/dL (28.0-37.0); MCV 96.6 fL (80.0-100.0); MONOCYTES 8.2 % (1.0-8.0); PLATELET COUNT 213 thou/uL (150-400); POLYS 83.1 % (36.0-66.0); RBC 3.54 mil/uL (4.20-5.00); RDW 13.7 % (10.5-14.5); WBC 13.5 thou/uL (4.0-11.0)
[2019-04-07 05:55] LABS: ALBUMIN 2.6 g/dL (3.4-5.0); CALCIUM 8.7 mg/dL (8.5-10.1); CREATININE 0.8 mg/dL (0.6-1.0); MAGNESIUM 1.3 mg/dL (1.8-2.4); POTASSIUM 3.4 mmol/L (3.5-5.1); TOTAL BILIRUBIN 0.4 mg/dL (<0.1-1.0); TOTAL PROTEIN 6.3 g/dL (6.4-8.2)
[2019-04-07 07:20] VITALS: BP 155/68
--- NOTE | 2019-04-07 07:22 | NUR ---
ASSUMED CARE AROUND 1915. AXOX3 WITH OCCASIONAL CONFUSION AND IMPILSIVNESS TO GET UP TO USE THE COMMODE. DPOA ISSUE ENDORSED TO DAY RN. IV REPLACED TO . NO S/S ACUTE DISTRESS NOTED OR REPORTED AT THIS TIME. CARE TRANSFERRED TO DAY RN AT THIS TIME.
--- NOTE | 2019-04-07 11:01 | NUR ---
PT A&OX3-4, GETS CONFUSED AFTER PAIN MEDICATION. VSS, PAIN IN MID CHEST AND HEAD. PATIENT RESTING IN BED WITH ALARM ON, PATIENT UP TO BEDSIDE COMMODE. NO SIGNS OF DISTRESS. WILL CONTINUE TO MONITOR.
--- NOTE | 2019-04-07 14:02 | NUR ---
DISCHARGE PLANNING. POST ACUTE RECOMMENDED AT DISCHARGE. PATIENT REFERRAL FAXED TO [facility] PER REQUEST. CALL PLACED TO [facility], TO NOTIFY. AWAITING RESPONSE. FOLLOWING.
--- NOTE | 2019-04-07 14:19 | NUR ---
PT ADMITTED RELATED TO STERNAL/RIB PAIN. PT HAD DISCHARGED HOME 04/01/19 WITH [facility]. HH HAD GONE TO ADMIT PT BUT HADN'T ACTUALLY DONE SO PT STATED SHE WANTED TO GO SKILLED. THEY HADN'T ASSISTED PT WITH THIS PROCESS. CM MET WITH PT AT BEDSIDE THIS DAY. PT IS A&O X4. CM ROLE INTRODCUED. PT CONFIRMED THAT SHE RESIDES IN A HOUSE WITH 2 STEPS TO ENTER AND 12 STEPS INSIDE. PT INDICATED SHE WANTED REFERRAL SENT TO [facility] FOR REVIEW FOR POSSIBLE ADMISSION. DC INSTRUMENTATION INSTRUCTOR TO FAX ONCE THERAPY ASSESSMENTS ARE ENTERED. CM TO FOLLOW INDICATED WITH DC PLANNING.
[2019-04-07 14:20] VITALS: BP 157/69
--- NOTE | 2019-04-07 15:00 | NUR ---
DR. BOWLING RECEIVED CONSULT. PATIENT SEEN BY DR. BOWLING THIS DATE AND DR. BOWLING AGREES WITH PLAN FOR PATIENT TO D/C TO [facility] FOR REHAB STAY. THANK YOU FOR THIS REFERRAL.
[2019-04-07 19:00] VITALS: BP 152/54
--- NOTE | 2019-04-08 01:56 | NUR ---
ASSUMED CARE OF PT AT 1900HRS. PT IS AOX3 WITH SOME CONFUSION AND FORGETFULNESS. FALL PRECAUTION IN PLACE. PT HAS FREQUENT URINARY URGENCY BUT BUT HAS CONTROL OVER HER BLADDER. PT REPORTED SOME PAIN AND WAS TREATED WITH PRN PAIN MEDS. ABX TREATMENT CONTINUED. VSS AND NO S.S OF ACUTE DISTRESS. WILL CONTINUE TO MONITOR.
[2019-04-08 07:25] VITALS: BP 149/59
--- NOTE | 2019-04-08 10:06 | NUR ---
Received awake on bed. Due medications given as prescribed, able to swallow meds without difficulty. A+O, with on and off confusion noted. On room air, with breathing treatments prescribed. Assisted in ADLs. With Ns at 80cc/hr, infusing well at R hand. Able to walk to the toilet using walker and gait belt with minimum to standby assist, able to use bedside commode from time to time as well. Pt encouraged to eat and drink- refusing meals. Falls bundle in place.
--- NOTE | 2019-04-08 13:42 | NUR ---
[facility] VISITED PT AND INDICATED THAT THEY WOULD SUBMIT FOR AUTH. CM TO FOLLOW INIDCATED WITH DC PLANNING.
[2019-04-08 15:02] VITALS: BP 152/74
[2019-04-08 19:00] VITALS: BP 158/67
--- NOTE | 2019-04-09 03:18 | NUR ---
ASSUMED CARE OF PT AT 1900HRS. PT IS AOX3 AND FALL PRECAUTION IN PLACE. PT IS CONFUSED BUT EASILY ORIENTED. PT HAS FREQUENT URGENCY TO VOID. PT REPORTED SOME PAIN AND WAS GIVEN PRN PAIN MEDS. PT WAS ABLE TO GET COMFORTABLE AND SLEEP PART OF THE SHIFT. VSS AND NO S/S OF ACUTE DISTRESS. WILL CONTINUE TO MONITOR.
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
[2019-04-09 07:04] VITALS: BP 180/76
[2019-04-09 08:33] VITALS: BP 146/78
--- NOTE | 2019-04-09 12:29 | NUR ---
CM HAD FOLLOWED UP WITH PT AT BEDSIDE YESTERDAY AND INDICATED THAT [facility] WOULDN'T HAVE A BED UNTIL SUNDAY AND PROVIDED PT WITH A LIST TO SELECT ALTERNATIVE FACILITIES. CM FOLLOWED UP WITH PT THIS AM AND SHE HADN'T SELECTED ANY. PER PT'S REQUEST BOAZ CALLED PT'S SON YUN AND INDICATED THAT ABOVE. HE STATED THAT HE WAS GOING TO BE AT HOSPITAL AT 12:30 TODAY TO MEET WITH PT AND RADIATION ONC. WE RECEIVED INSURANCE AUTH FOR [facility] IN THE MEANTIME AND THEY CAN ARRANGE TRANSPORT FOR [id number]. CHART COPY ORDERED. ORDERS TO BE FAXED ONCE COMPLETED.
--- NOTE | 2019-04-09 13:30 | NUR ---
Received awake on bed. Due medications given as prescribed, able to swallow meds w/o difficulty. A+O, on and confusion. On room air, on regular breathing treatments. On regular diet- encouraged and assisted to eat and drink, field cane scale clerk consult placed for patient's poor intake. With SL at R hand, NS at 80cc/hr, infusing well. Able to use bedside commode with minimal to standby assist. Pt seen by Dr Du- asked to call lab re: add on pathology tests, called Laboratory staff Kassie and said to put add on test- orders made and they will fax orders to outside lab, updated Dr Sanders. Falls bundle in place. Assisted in ADLs. With consult to [facility]- US called in consult, DROP WIRE STRINGER of [facility] called back and asked for pt's laboratory and Dr Du's notes sent to their office- US faxed documents. Pt visited by relative today, CM aware and spoke to them re: plans. Complained of pain, due PRN medication given as prescribed. With consult to Dr Bertrand- [facility] called in consult, a/w rounds on patient. A/W placment plans on patient. Pt with on and off episode of confusion and impulsiveness- checked frequently.
[2019-04-09] MEDS ORDERED: VOLTAREN GEL 1100 G1 TOP (13:57)
[2019-04-09] MEDS ORDERED: ALBUTEROL2.5 MG/0.5 INH (13:57)
[2019-04-09] MEDS ORDERED: OXYCODONE HCL10 MG PO (13:57)
[2019-04-09] MEDS ORDERED: MIRALAX17 GM PO (13:57)
[2019-04-09] MEDS ORDERED: SENNA-TIME S T1 EACH PO (13:57)
[2019-04-09] MEDS ORDERED: CEFUROXIME500 MG PO (13:57)
[2019-04-09] MEDS ORDERED: ENOXAPARIN40 MG/0.1 SUBQ (13:57)
[2019-04-09] MEDS ORDERED: ALPRAZOLAM 0.0.25 MG PO (13:57)
[2019-04-09] MEDS ORDERED: LIDOPATCH1 EACH TRANSDERM (13:57)
[2019-04-09] MEDS ORDERED: ZITHROMAX500 MG PO (13:57)
[2019-04-09] MEDS ORDERED: DEXAMETHASONE 44 M1 PO (13:57)
[2019-04-09] MEDS ORDERED: ACETAMINOPHEN325 M1 PO (13:57)
[2019-04-09 15:36] VITALS: BP 161/68
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
== END 2019-04-09 16:22 | DRG 922 ==
LOC: ER 16:57 → EROBS 20:56 → 4W 20:56
PROVIDERS: Internal Medicine; Nurse Practitioner Family; Physician Assistant; ADMIT Internal Medicine
DX: T79.8XXA Other early complications of trauma, initial encounter (principal); E43 Unspecified severe protein-calorie malnutrition; I50.32 Chronic diastolic (congestive) heart failure; C34.91 Malignant neoplasm of unspecified part of right bronchus or lung; C38.3 Malignant neoplasm of mediastinum, part unspecified; E46 Unspecified protein-calorie malnutrition; Z68.1 Body mass index [BMI] 19.9 or less, adult; C79.31 Secondary malignant neoplasm of brain; R07.81 Pleurodynia; S22.000A Wedge compression fracture of unspecified thoracic vertebra, initial encounter for closed fracture; G35 Multiple sclerosis; F17.210 Nicotine dependence, cigarettes, uncomplicated; F12.90 Cannabis use, unspecified, uncomplicated; M41.9 Scoliosis, unspecified; R07.9 Chest pain, unspecified; J44.9 Chronic obstructive pulmonary disease, unspecified; E78.5 Hyperlipidemia, unspecified; G89.4 Chronic pain syndrome; I11.0 Hypertensive heart disease with heart failure; F32.9 Major depressive disorder, single episode, unspecified; F41.9 Anxiety disorder, unspecified; D72.829 Elevated white blood cell count, unspecified; Z87.01 Personal history of pneumonia (recurrent); Z79.891 Long term (current) use of opiate analgesic; V89.2XXA Person injured in unspecified motor-vehicle accident, traffic, initial encounter; Z90.710 Acquired absence of both cervix and uterus; Z79.899 Other long term (current) drug therapy; Y93.89 Activity, other specified; Y92.89 Other specified places as the place of occurrence of the external cause; Y99.8 Other external cause status
CPT/HCPCS: 10040